=== PATIENT | female | born 1985 | race Caucasian/White ===

== ENCOUNTER 2020-12-20 13:10 | Emergency (ER) | payer OTHER ==
[~2020-12-20] VITALS: Ht 165.1 cm; Wt 70.3 kg
[2020-12-20] MEDS ORDERED: CLINDAMYCIN HCL 150 MG CAP PO NR (13:31)
[2020-12-20] MEDS ORDERED: CLEOCIN HCL150 MG PO (13:34)
== END 2020-12-20 13:50 | disposition home or self-care (01) ==
LOC: ER 13:30
DX: L02.412 Cutaneous abscess of left axilla (principal)
CPT/HCPCS: 99283

== ENCOUNTER 2021-09-26 16:51 | Emergency (ER) | payer BC, OTHER ==
[~2021-09-26] VITALS: Ht 165.1 cm; Wt 70.3 kg
[~2021-09-26 16:51] MED LIST: CLEOCIN HCL150 MG PO
[2021-09-26] MEDS ORDERED: LIDOCAINE HCL 2% LOCAL 20 ML VIAL INJ ONE (17:15)
== END 2021-09-26 17:55 | disposition home or self-care (01) ==
LOC: ER 17:06
DX: L02.415 Cutaneous abscess of right lower limb (principal)
CPT/HCPCS: 99282